=== PATIENT | female | born 1940 | race Caucasian/White ===

== ENCOUNTER → 2023-11-30 09:35 | Outpatient (REF) | payer OTHER, SELFPAY ==
[2023-11-30 10:24] LABS: % Basophils 0.9 % (0-2); % Eosinophils 7.1 % (0-6); % Immature Granulocytes 0.2 % (0-0.5); % Lymphocytes 33.3 % (20.5-51.1); % Monocytes 12.2 % (1.7-9.3); % Neutrophils 46.3 % (42.2-75.2); Absolute Eosinophils 0.3 10^3/uL (0-0.7); Absolute Lymphocytes 1.5 10^3/uL (1.2-3.4); Absolute Monocytes 0.5 10^3/uL (0.1-0.6); Hematocrit 47.1 % (37.0-47.0); Hemoglobin 15.7 g/dL (12.0-16.0); Mean Corp Hgb Conc. 33.3 g/dL (33.0-37.0); Mean Corpuscular Hgb 29.6 pg (27.0-31.0); Mean Corpuscular Volume 88.9 fL (81.0-99.0); Mean Platelet Volume 10.7 fL (7.4-10.4); Nucleated Red Blood Cells % 0 %; Platelet Count 205 10^3/uL (130-400); Red Cell Dist. Width 13.3 % (11.5-14.5); Urine Albumin Negative (Neg - Trace); Urine Bilirubin Negative (Negative); Urine Character Clear (Clear); Urine Color Yellow; Urine Glucose Negative (Negative); Urine Ketone Negative (Negative); Urine Leukocyte Trace (Negative); Urine Nitrite Negative (Negative); Urine Occult Blood Trace (Negative); Urine Urobilinogen Negative (Neg - 1+); White Blood Cell Count 4.4 10^3/uL (4.8-10.8)
[2023-11-30 10:55] LABS: Urine Mucus Many
[2023-11-30 10:56] LABS: ALT (SGPT) < 10 U/L (0-35); AST (SGOT) 24 U/L (14-36); Albumin 3.8 g/dl (3.5-5.0); Alkaline Phosphatase 68 U/L (38-126); Blood Urea Nitrogen 9 mg/dl (7-17); Calcium 9.1 mg/dl (8.4-10.2); Carbon Dioxide 25 mmol/L (22-30); Chloride 109 mmol/L (98-107); Glucose 96 mg/dl (70-99); HDL Cholesterol 61 mg/dl; LDL Cholesterol, Calculated 72 mg/dl; Potassium 4.7 mmol/L (3.5-5.1); Sodium 137 mmol/L (135-145); Total Bilirubin 0.9 mg/dl (0.2-1.3); Total Cholesterol 154 mg/dl (50-199); Total Protein 6.7 g/dl (6.3-8.2); Triglyceride 108 mg/dl (10-149); Urine Bacteria Few (Negative); Urine Red Blood Cell 0-2 /HPF (0-2); Urine White Cell 0-2 /HPF (0-5); Very Low Density Lipoprotein 21 mg/dl (0-30); eGFR > 60.00
[2023-11-30 11:21] LABS: TSH Reflex To Free T4 2.11 uIU/ml (0.47-4.68)
== END ==
LOC: REG 09:35
PROVIDERS: ATTENDING PHYSICIAN Physician Assistant
DX: I10 Essential (primary) hypertension (principal); Z83.438 Family history of other disorder of lipoprotein metabolism and other lipidemia; Z13.1 Encounter for screening for diabetes mellitus; Z13.29 Encounter for screening for other suspected endocrine disorder
CPT/HCPCS: 36415; 80053; 80061; 81003; 81015; 84443; 85025

== ENCOUNTER → 2024-02-26 13:48 | Outpatient (REF) | payer OTHER, SELFPAY | LOC: RCS 13:48 | PROVIDERS: ATTENDING PHYSICIAN Physician Assistant | DX: I10 Essential (primary) hypertension (principal); E78.5 Hyperlipidemia, unspecified | CPT/HCPCS: 93005 ==

== ENCOUNTER → 2024-03-19 14:29 | Outpatient (REF) | payer OTHER, SELFPAY | LOC: WDC 14:29 | PROVIDERS: ATTENDING PHYSICIAN Physician Assistant | DX: Z12.31 Encounter for screening mammogram for malignant neoplasm of breast (principal) | CPT/HCPCS: 77063; 77067 ==

== ENCOUNTER 2024-04-15 14:41 | Inpatient (IN) | payer OTHER, SELFPAY ==
[2024-04-15] VITALS (21 sets, daily range): BP systolic 138–252; BP diastolic 55–127; BMI 23.7
--- NOTE | 2024-04-15 10:47 | ED.GENMED ---
History of Present Illness
<Michelle Rebollar PA-C - Last Filed: 04/15/24 13:47>
General
Chief Complaint: Blood Pressure Problem
Source: patient
Exam Limitations: none
Time Seen by Provider: 04/15/24 10:45
Nursing documentation reviewed up to this point in time: agreed with
Travel History
Have you had any contact with someone who has COVID-19?: No
Do you have any symptoms of coronavirus? Fever > 100 degrees, chills, cough, shortness of breath, sore throat, loss of taste or smell, muscle aches, or headache?: No
History of Present Illness
History of Present Illness:
This is a 83 y/o female with a PMH of HTN, HLP presenting to the emergency department today with concerns of high blood pressure. She states that she is healthy and feels well. States that she is establishing care with a new primary Dr. Wilson and
Dulce BARBER at [facility]. Patient states that they ordered routine test to establish a baseline which include an echocardiogram. She went for this test today for study was completed but they noted that she had a high blood
pressure and they sent her to the emergency department for further evaluation. Patient has been on losartan 100 mg once daily metoprolol 50 milligram twice daily for many years. Patient states that she has not seen her primary in a few years but
throughout that time has been taking her medications daily but is unsure what her baseline blood pressures. Patient denies any chest pain, shortness of breath, abdominal pain, headache, back pain, decreased urinary output. Patient is never seen a
automatic glove turner and former. Patient requesting to go home. Patient also complains of wax in her ears.
Review of Systems
<Michelle Rebollar PA-C - Last Filed: 04/15/24 13:47>
Review of Systems
All Other Systems: ROS reviewed and negative except as documented in HPI and ROS
Phy Exam
<Michelle Rebollar PA-C - Last Filed: 04/15/24 13:47>
Physical Exam
Physical Exam:
General: Patient is well appearing and in no acute distress; non-toxic
Skin: Warm and dry, no rashes or lesions
Head: Normocephalic, atraumatic
Ears: No cerumen impaction in bilateral external canals
Eyes: Sclera non-icteric. EOMs intact. PERRLA.
Cardiac: Regular rate and rhythm, no murmur
Peripheral Vascular: No lower extremity swelling
Pulm: Normal respiratory effort, no wheezes, rales, rhonchi
Abdomen: No abdominal tenderness to palpation
Neuro: CN II-XII intact, no focal neurologic deficits.
Psychiatric: Appropriate mood and affect.
Course
<RADHAMES Boyer Last Filed: 04/15/24 13:47>
Orders/Labs/Results
Orders:
Orders
04/15/24
US Renal With Bladder Urgent
04/15/24 10:52
Electrocardiogram (*1) Urgent
Reason for Study: Hypertension, Benign
EKG- Treatment ONCE
04/15/24 11:12
Complete Blood Count/With Diff Urgent
Comprehensive Metabolic Panel Urgent
04/15/24 11:37
Losartan [Cozaar] 100 mg PO NOW STA
Metoprolol [Lopressor] 50 mg PO NOW STA
04/15/24 12:[address] Non Medication Order As Directed
Physician Order: Obtain BP on both arms and document
Above order entered?: Yes
04/15/24 13:00
Nicardipine 40 mg/200 ml [Cardene] 40 mg in 200 ml IV PER PROTOCOL
Initial dose in mg/hr, then titrate:: 2.5
Titrate to keep:: BP < 180/105 mmHg
Titrate by mg/hr:: 2.5 mg/hr
Frequency of titrations (minutes):: 5-15 minutes
Maximum dose in mg/hr:: 15
Begin to taper infusion when:: Remained at goal for 2hrs
Taper by mg/hr:: 2.5 mg/hr
Frequency of taper (minutes) if patient maintains goal:: every 15-30 minutes
Taper to off?: Yes
If infusion off & no longer maintaining goal:: Contact Provider
04/15/24 13:10
Add On- LAB Urgent
Tests Added?: plasma metanephrines
04/15/24 13:14
US Renal Artery Routine
Comment:
Reason For Exam: HTN urgency
04/15/24 14:00
Chlorthalidone [Hygroton] 25 mg PO DAILY
04/15/24 20:00
Carvedilol [Coreg] 12.5 mg PO BID
04/16/24 08:00
Hydrochlorothiazide [Oretic] 25 mg PO DAILY
Abnormal Lab Results
04/15/24
11:12
RBC 5.46 H 10^6/uL
(4.20-5.40)
Hgb 16.1 H g/dL
(12.0-16.0)
MPV 10.8 H fL
(7.4-10.4)
Monocytes % 9.9 H %
(1.7-9.3)
Glucose 108 H mg/dl
(70-99)
04/15/24 11:12
04/15/24 11:12
Vital Signs
Initial and Last Documented VS:
Initial Vital Signs
Pulse Resp BP Pulse Ox
62 20 248/120 96
04/15/24 10:41 04/15/24 10:41 04/15/24 10:41 04/15/24 10:41
Last Documented Vital Signs
Pulse Resp BP Pulse Ox
54 8 228/75 96
04/15/24 12:45 04/15/24 12:45 04/15/24 13:11 04/15/24 12:45
<Дмитрий Jimenez MD - Last Filed: 04/15/24 12:11>
Orders/Labs/Results
Orders:
Orders
04/15/24
US Renal With Bladder Urgent
04/15/24 10:52
Electrocardiogram (*1) Urgent
Reason for Study: Hypertension, Benign
EKG- Treatment ONCE
04/15/24 11:12
Complete Blood Count/With Diff Urgent
Comprehensive Metabolic Panel Urgent
04/15/24 11:37
Losartan [Cozaar] 100 mg PO NOW STA
Metoprolol [Lopressor] 50 mg PO NOW STA
04/15/24 12:[address] Non Medication Order As Directed
Physician Order: Obtain BP on both arms and document
Above order entered?: Yes
04/15/24 13:00
Nicardipine 40 mg/200 ml [Cardene] 40 mg in 200 ml IV PER PROTOCOL
Initial dose in mg/hr, then titrate:: 2.5
Titrate to keep:: BP < 180/105 mmHg
Titrate by mg/hr:: 2.5 mg/hr
Frequency of titrations (minutes):: 5-15 minutes
Maximum dose in mg/hr:: 15
Begin to taper infusion when:: Remained at goal for 2hrs
Taper by mg/hr:: 2.5 mg/hr
Frequency of taper (minutes) if patient maintains goal:: every 15-30 minutes
Taper to off?: Yes
If infusion off & no longer maintaining goal:: Contact Provider
04/15/24 13:10
Add On- LAB Urgent
Tests Added?: plasma metanephrines
04/15/24 13:14
US Renal Artery Routine
Comment:
Reason For Exam: HTN urgency
04/15/24 14:00
Chlorthalidone [Hygroton] 25 mg PO DAILY
04/15/24 20:00
Carvedilol [Coreg] 12.5 mg PO BID
04/16/24 08:00
Hydrochlorothiazide [Oretic] 25 mg PO DAILY
Abnormal Lab Results
04/15/24
11:12
RBC 5.46 H 10^6/uL
(4.20-5.40)
Hgb 16.1 H g/dL
(12.0-16.0)
MPV 10.8 H fL
(7.4-10.4)
Monocytes % 9.9 H %
(1.7-9.3)
Glucose 108 H mg/dl
(70-99)
04/15/24 11:12
04/15/24 11:12
Vital Signs
Initial and Last Documented VS:
Initial Vital Signs
Pulse Resp BP Pulse Ox
62 20 248/120 96
04/15/24 10:41 04/15/24 10:41 04/15/24 10:41 04/15/24 10:41
Last Documented Vital Signs
Pulse Resp BP Pulse Ox
54 8 228/75 96
04/15/24 12:45 04/15/24 12:45 04/15/24 13:11 04/15/24 12:45
Patellt;Michelle Rebollar PA-C - Last Filed: 04/15/24 13:47>
MDM/Problems Addressed
Differential Diagnosis Includes:
Differentials include essential hypertension, medication noncompliance, whitecoat syndrome, ACS, hyperthyroidism
MDM/Problems Addressed:
Hypertension:
This is a 83-year-old female with a past medical history of hypertension hyperlipidemia presenting today for concerns of asymptomatic hypertension. She was sent from the echocardiogram suite because that they noticed her blood pressure was 240/120.
Patient has no chest pain, no headache, no back pain no abdominal pain, completely asymptomatic. Patient take losartan and metoprolol daily. Patient did not take these this morning because she likes to take them with food and she was going at her
echocardiogram did not have a chance to eat this morning. This patient very well-appearing on exam, no murmurs heard on exam, no lower extremity swelling, equal breath sounds. I spoke to ELISABETH from Dr. Samayoa's office who is requesting patient's
blood pressure be further managed by cardiology. We spoke to automatic glove turner and former on-call for further recommendations for an additional agent, they saw patient and considering her BP has been persistently elevated despite treatment, they did recommend
admission so she can have further testing done for secondary causes. We did give patient her oral meds here in the ER which did not seem to bring her pressure down significantly. Patient referred for admission.
Chronic conditions affecting care:
hypertension, hyperlipidemia
Acute Exacerbation and/or Progression of Chronic Illness:
hypertension, hyperlipidemia
<Michelle Rebollar PA-C - Last Filed: 04/15/24 13:47>
*Pulse Oximetry
Patient hypoxic: no
*EKG
Interpreted by ED Provider?: Yes
EKG Intrepretation Date: 04/15/24
Interpretation: normal
Comparison EKG: no changes
Heart Rate: 63
Rate: normal
Rhythm: sinus
[place]: normal axis
Interval: normal interval, normal QT interval and normal [place] interval
QRS Pattern: normal QRS
Ischemia: no ischemia
*Water Gas Operator Interpretation
Rate: bradycardiac
Interpretation: abnormal
Heart Rate: 53
Rhythm: sinus
*Critical Care Note
Total Time (30-74mins, 75-104mins- exclusive of procedures): Not Applicable
Data Reviewed
Review of Other/Old Records Reveals: Records (Reviewed ER physician documentation from 08/05/21) and Discharge Summary (No recent discharge summaries to review)
Source: patient and records
Prescriptions/Medications Considered But Not Given:
Considered IV labetalol however patient is heart rate is in the 50s to 60s and already takes metoprolol daily
<Michelle Rebollar PA-C - Last Filed: 04/15/24 13:47>
Patient Management
Escalation/DeEscalation of care consider admission/obs:
admission indicated
ED Attending Note
<Michelle Rebollar PA-C - Last Filed: 04/15/24 13:47>
-
Portions of this chart may have been created with voice recognition software.� Occasional wrong word or��sound alike� substitutions may have occurred due to the inherent limitations of voice recognition software.
<Дмитрий Jimenez MD - Last Filed: 04/15/24 12:11>
ED Attending Note
Patient seen and examined by attending physician: Yes
I performed the substantive portion of visit, reviewed & personally made and approve the management plan that is documented in note by myself or ELISABETH.: Yes
ED Attending Note:
Patient sent from echocardiogram for asymptomatic hypertension. Has been an ongoing issue. Patient states compliant with medication. Currently on losartan 100 mg a day and metoprolol 100 mg daily. No chest pain shortness of breath headache
visual issues or neurologic issues.
Patient is in no distress. Neck is supple. Heart regular rate and rhythm no murmur. Lungs are clear and equal. Abdomen nontender. She has no peripheral edema.
EKG is stable. Contacted echo department to try to get echo read. Discussed with primary care. We will contact cardiology further input and follow-up for hypertension. She was given her morning meds.
Discharge Plan
Departure
Patient Disposition: Admit
Date of Disposition: 04/15/24
Time of Disposition: 13:03
Admit to: Telemetry
Presentation/result/management discussed w/ accepting MD/DO: Hospitalist
Condition: Fair
Discharge Problem:
Hypertension
Prescriptions:
No Action
metoprolol succinate 50 mg tablet extended release 24 hr
100 mg PO DAILY
losartan 100 mg tablet
100 mg PO DAILY
pitavastatin calcium 4 mg tablet
4 mg PO DAILY
Referrals:
Rayshawn Wilson MD [Family Provider] -
Interventions
Interventions:
*Risk Screen - Suicide Last Done: 04/15/24 10:41
*General Assessment Last Done: 04/15/24 10:41
*Neglect/Abuse Screening Last Done: 04/15/24 10:41
ED- Cardiac Assessment Last Done: 04/15/24 11:33
ED- Neurological Assessment Last Done: 04/15/24 11:33
ED- Pulmonary Assessment Last Done: 04/15/24 11:33
Discharge Date and Time
Print Language: SLOVENIAN
[2024-04-15 11:34] LABS: % Eosinophils 3.9 % (0-6); % Immature Granulocytes 0.2 % (0-0.5); % Lymphocytes 25.6 % (20.5-51.1); % Monocytes 9.9 % (1.7-9.3); % Neutrophils 59.4 % (42.2-75.2); Absolute Basophils 0.1 10^3/uL (0-0.2); Absolute Eosinophils 0.2 10^3/uL (0-0.7); Absolute Lymphocytes 1.3 10^3/uL (1.2-3.4); Absolute Monocytes 0.5 10^3/uL (0.1-0.6); Absolute Neutrophils 3.1 10^3/uL (1.4-6.5); Hematocrit 46.7 % (37.0-47.0); Hemoglobin 16.1 g/dL (12.0-16.0); Mean Corp Hgb Conc. 34.5 g/dL (33.0-37.0); Mean Corpuscular Hgb 29.5 pg (27.0-31.0); Mean Corpuscular Volume 85.5 fL (81.0-99.0); Mean Platelet Volume 10.8 fL (7.4-10.4); Nucleated Red Blood Cells % 0 %; Platelet Count 206 10^3/uL (130-400); Red Blood Cell Count 5.46 10^6/uL (4.20-5.40); Red Cell Dist. Width 13.2 % (11.5-14.5); White Blood Cell Count 5.2 10^3/uL (4.8-10.8)
[2024-04-15 11:43] LABS: ALT (SGPT) < 10 U/L (0-35); AST (SGOT) 26 U/L (14-36); Albumin 4.1 g/dl (3.5-5.0); Alkaline Phosphatase 67 U/L (38-126); Blood Urea Nitrogen 10 mg/dl (7-17); Calcium 9.9 mg/dl (8.4-10.2); Carbon Dioxide 27 mmol/L (22-30); Chloride 107 mmol/L (98-107); Glucose 108 mg/dl (70-99); Potassium 4.4 mmol/L (3.5-5.1); Sodium 140 mmol/L (135-145); Total Bilirubin 1.1 mg/dl (0.2-1.3); Total Protein 7.2 g/dl (6.3-8.2); eGFR > 60.00
[2024-04-15] MEDS: LOPRESSOR 50 MG PO (11:49)
[2024-04-15] MEDS: COZAAR 100 MG PO (11:49)
--- NOTE | 2024-04-15 12:24 | CON.CAR ---
Addendum entered and electronically signed by Jessica Marrufo MD 04/15/24 15:09:
I saw and examined the patient.
The CORDUROY BRUSHER OPERATOR's note was reviewed and I agree with the note.
Comment: 83-year-old female with recent diagnosis of hypertension and dyslipidemia after no medical care for 3-4years. She was sent to the ED for severe HTN while in the echo lab. She has no symptoms. She didn't take her meds prior to arrival.
However bp persists int he 2330/120's. On exam rrr no m/r/g lungs are CTA. She is A&O x3. will need agreesive care for the HTN urgency/emergency. We will make the below med changes. Will start a secondary work up. Will follow.
Original Note:
Consultation
Consultation Request
Date/Time Consultation Requested: 04/15/2024 12:15
Date/Time Consultation Performed: 04/15/2024 12:30
Requesting Provider: Michelle Rebollar PA-C
Performing Provider: LUZMARIA Mohr for Dr. Marrufo
Reason for Consultation: HTN Urgency
Medical History
-
Chief Complaint: Elevated BP
History of Present Illness:
Janee Tellez is an 83-year-old female with hypertension and dyslipidemia who presented with elevated blood pressure. She has been having challenges with her blood pressure. When she last saw her PCP her blood pressure recorded for her office
visit was 210/90 mmHg. This correlated with her Omron machine. Home blood pressures were over 200 mmHg systolic at home. She is maintained on metoprolol succinate 100 mg daily and losartan 100 mg daily. She reports medication adherence. She did
not take her medication this morning. She was waiting until she ate. She presented for an echocardiogram and was referred to the emergency department after it was completed due to her abnormal blood pressure. Her blood pressures correlate on both
of her arms. She is not having any chest pain, dizziness, nor visual changes. She was given losartan 100 mg orally in the emergency department and has had no change in her blood pressure.
She believes her elevated blood pressure is all in the setting of stress. She is mourning the loss of her 12-year-old grandson, Luis, who lost his stevens with leukemia last year.
Past Medical History
Past Medical History: HTN and Hypercholesterolemia
Social History
Tobacco: Non-Smoker
Drug: None
Personal:
Living: With Family
Employment: Retired
Family History
Family History: Reviewed & Not Pertinent
Allergies / Home Medications
Allergy/AdvReac Type Severity Reaction Status Date / Time
No Known Allergies Allergy Verified 04/15/24 10:43
�Medication �Instructions �Recorded �Confirmed �Type
losartan 100 mg tablet 100 mg PO DAILY 04/15/24 04/15/24 History
metoprolol succinate 50 mg 100 mg PO DAILY 04/15/24 04/15/24 History
tablet,extended release 24 hr
pitavastatin calcium 4 mg tablet 4 mg PO DAILY 04/15/24 04/15/24 History
Review of Systems
-
History Source: Patient
All other systems: Negative unless noted
Respiratory: No Symptoms
Cardiac: No Symptoms
Abdomen/GI: No Symptoms
: No Symptoms
Physical Exam
Vital Signs
Pulse Resp BP Pulse Ox
54 17 250/93 99
04/15/24 11:49 04/15/24 11:30 04/15/24 11:49 04/15/24 11:30
Lab Results
04/15/24 11:12
04/15/24 11:12
Physical Exam
General: Well Developed, Well Nourished, No Apparent Distress and Comfortable
HEENT: Normocephalic, Anicteric and Moist Mucous Membranes
Respiratory: Non Labored Respirations
Cardiac: S1/S2 and Regular Rhythm; Negative Peripheral Edema
Breast: Deferred by me
GI: Soft, Non Tender, Non Distended and Normal Bowel Sounds
Rectal: Deferred by Provider
Genito-urinary: No Costovertebral Tender
Musculoskeletal: No Clubbing, No Cyanosis and No Edema
Skin: Warm and Dry
Neuro: AO x 3
Hematologic/Lymphatic: No Lymphadenopathy
Psych: Calm
Impression / Plan
-
Hypertensive urgency
-EKG without acute ischemia
-Start Cardene for SBP goal < 180mmHg
-Serum metanephrines
-Renal artery US
-Echocardiogram today with stage II DD, mild cLVH
-Continue Losartan 100mg
-Chlorthalidone 25mg daily, start now
-Stop metoprolol succinate 100mg and transition to carvedilol 12.5mg BID starting this evening
Dyslipidemia
-Lipid panel 11/30/2023: TC 154, HDL 61, LDL 72, TG 108 (on pravastatin 4 mg)
Data Reviewed
-
EKG: Report Reviewed by me (Sinus rhythm, nonspecific ST abnormality, rate 63)
Medical Tests (Nuc Med, Echo etc): Report Reviewed by me (Echocardiogram as above)
Labs: Labs Reviewed by me
Old Records: Reviewed
--- NOTE | 2024-04-15 13:17 | HPS.HSE ---
Addendum entered and electronically signed by LUZMARIA Nick 04/15/24 15:55:
Patient was on Cardene drip 2.5 mg an hour dropped from 237/83 to 138/59
-We will stop Cardene drip
-Downgrade to telemetry
-Give chlorthalidone
-Continue to monitor
Original Note:
Family Physician
-
Family Physician: Rayshawn Wilson
Chief Complaint
-
Elevated blood pressure in office no current symptoms
History of Present Illness
83-year-old female who was sent by cardiology office where she was due for an echo today. She was noted to be hypertensive and was sent to the ER for further evaluation. In the ER her blood pressure was 248/120. She was given her dose of Cozaar
and Lopressor. She currently takes losartan 100 mg daily, metoprolol 50 mg twice daily. She has not seen a primary care in a few years and just reestablish care with Dr. Wilson. She denies headache, blurred vision, chest pain, palpitations,
shortness breath, cough, abdominal pain, nausea, vomiting, diarrhea, urinary symptoms. She is past medical history of hypertension, HLD.
Medical History
Past Medical History
Past Medical History: Reports Other
Additional Past Medical History:
HTN�benign
HLD
Past Surgical History: Reports
Social History
Tobacco: Non-smoker
Alcohol: None
Drug: None
Personal:
Living: With Family
Employment: Retired
Family History
Family History: Other (Grandson of leukemia age 12)
Allergies / Home Medications
Allergies reflects when Allergies were last updated in [facility].
Home Medications with original date entered in [facility]
Allergy/Medication List:
Allergies
Allergy/AdvReac Type Severity Reaction Status Date / Time
No Known Allergies Allergy Verified 04/15/24 10:43
Home Medications
losartan 100 mg tablet 100 mg PO DAILY 04/15/24
metoprolol succinate 50 mg tablet,extended release 24 hr 100 mg PO DAILY 04/15/24
pitavastatin calcium 4 mg tablet 4 mg PO DAILY 04/15/24
Review of Systems
-
History Source: Patient and Family ( Ed and son Jorge at bedside)
A 12 point ROS was completed and negative except as noted: Yes
Constitutional: Denies Fever, Fatigue or Chills
EENT: Denies Sore Throat or Runny Nose
Respiratory: Denies Cough or Trouble Breathing
Cardiac: Denies Chest Pain, Diaphoresis, Palpitations or Syncope
Abdomen/GI: Denies Abdominal Pain, Nausea, Vomiting, Diarrhea, Constipated, Bloody Stools or Black Stools
: Denies Dysuria, Frequency, Flank Pain, Incontinence, Difficulty Voiding or Urgency
Musculoskeletal: Denies Joint Pain or Edema
Skin: Denies Itching or Rash
Neurological: Denies Dizzy, Headache or Weakness
Endocrine: Reports No Symptoms
Hematologic/Lymphatic: Reports No Symptoms
Psych: Reports Calm
Physical Exam
Vital Signs
Vital Signs
Pulse Resp BP Pulse Ox
54 8 228/75 96
04/15/24 12:45 04/15/24 12:45 04/15/24 13:11 04/15/24 12:45
Physical Exam
General: Well Developed, Well Nourished, No Apparent Distress, Comfortable and Conversant; No Pain, Fever or Chills
HEENT: NormoCephalic, Anicteric, Moist mucous membranes, PERRLA, [place] Conjunctivae and No Ptosis
Respiratory: Clear; No Wheezes, Rales or Rhonchi
Cardiac: S1/S2 and Regular Rhythm; No Murmur, Rub, Gallop or Peripheral Edema
Breast: Deferred by me
GI: Soft, Non Tender, Non Distended, Normal Bowel Sounds and No Hepatosplenomegaly
Rectal: Deferred by Provider
Genito-urinary: Deferred by me
Musculoskeletal: No Clubbing, No Cyanosis and No Edema
Skin: Warm and Dry; No Rash or Jaundice
Neuro: AO x 3, No Motor Deficits, Nonfocal/grossly intact, Cranial Nerves Intact and No Sensory Deficits; No Slurred Speech, Facial Droop or Tremors
Psych: Calm
Laboratory Results
-
04/15/24 11:12
04/15/24 11:12
Laboratory Results
Total Bilirubin 1.1 mg/dl (0.2-1.3) 04/15/24 11:12
AST 26 U/L (14-36) 04/15/24 11:12
ALT < 10 U/L (0-35) 04/15/24 11:12
Alkaline Phosphatase 67 U/L (38-126) 04/15/24 11:12
Impression/Plan
-
Impression/plan:
Admit to ICU
#Hypertensive emergency
Asymptomatic no headache, chest pain, shortness of breath
248/120> 233/127
Patient was given Cozaar milligrams and Lopressor 50 mg in ER
-IV Cardene drip
-Start chlorthalidone 25 mg daily
-Change metoprolol> Coreg
-CBC cardiology consult
-Check renal artery ultrasound
2D echo 04/15/2024: EF 50-55%, mild LVH, no wall abnormalities, stage II diastolic dysfunction
#HLD
Continue Pitavastatin 4 mg daily
DVT prophylaxis
Subcu Lovenox
Full code
[2024-04-15] MEDS: CARDENE 200 IV (14:45)
--- NOTE | 2024-04-15 15:47 | W.PN.UPDATE ---
Update Note
Progress Note Update
This serves as an addendum to the H&P dictated by Anel Fuller on 04/15/2024.
I saw and examined the patient.
The AGILITY INSTRUCTOR or PA's note was reviewed and I agree with the note.
Comment:
Patient 83 years old female history of hypertension hyperlipidemia came into the hospital with hypertension. Patient has been managed outpatient with her blood pressure but she has been asymptomatic but due to multiple changes she was sent over for
further workup to the hospital but while she was getting her echocardiogram her blood pressure was noticed to be very elevated so she was sent to the ER. Patient denies any chest pain shortness of breath dizziness visual changes headache or
lightheadedness. Patient has been under significant amount of stress from her grandson's . She was given oral blood pressure medications and subsequently started by Cardene drmaggie and cardiology consulted. Hospitalist consulted for further
evaluation and admission.
Physical exam:
General: Well Developed, Well Nourished and No Apparent Distress
HEENT: Normocephalic, Atraumatic and Moist Mucous Membranes
Respiratory: Clear to Auscultation; Negative Wheezes, Rales or Rhonchi
Cardiac: Regular Rhythm and S1/S2
GI: Soft, Nontender and Nondistended
Musculoskeletal: No Clubbing, No Cyanosis and No Edema
Neuro: Awake, Alert and Oriented
Psych: Calm
A/P:
Hypertensive urgency--> should be able to switch to oral antihypertensives, needs secondary causes of hypertension workup, cardiology consulted. Will give further recommendations based on her clinical course.
[2024-04-15] MEDS: Hygroton 25 MG PO (15:51)
[2024-04-15] MEDS: LOVENOX 40 MG SC (17:53)
--- NOTE | 2024-04-15 19:05 | PTCARENOTE ---
Arrived to unit and ambulated to room from ED stretcher. No complaints at this time. Oriented to room. Call ortega within reach.
[2024-04-15] MEDS: COREG 12.5 MG PO (20:16)
[2024-04-16] VITALS (12 sets, daily range): BP systolic 132–220; BP diastolic 62–96; PULSE 62–63; O2SAT 98; BMI 23.8
--- NOTE | 2024-04-16 03:39 | DOWNTIME ---
There was a [employer] Client Family Helper Downtime on 04/16/2024 from 0100 to 04/16/2024 at 0337. Downtime documentation of patient's care, including medication administrations, has been reconciled in the electronic record per guidelines. Refer to the
patient's paper chart under the miscellaneous tab to see printed paper medication records and downtime forms.
[2024-04-16 07:21] LABS: % Basophils 0.7 % (0-2); % Eosinophils 3.5 % (0-6); % Immature Granulocytes 0.2 % (0-0.5); % Lymphocytes 32.2 % (20.5-51.1); % Monocytes 12.9 % (1.7-9.3); % Neutrophils 50.5 % (42.2-75.2); Absolute Eosinophils 0.2 10^3/uL (0-0.7); Absolute Lymphocytes 1.5 10^3/uL (1.2-3.4); Absolute Monocytes 0.6 10^3/uL (0.1-0.6); Absolute Neutrophils 2.3 10^3/uL (1.4-6.5); Hematocrit 42.8 % (37.0-47.0); Hemoglobin 14.2 g/dL (12.0-16.0); Mean Corp Hgb Conc. 33.2 g/dL (33.0-37.0); Mean Corpuscular Hgb 28.9 pg (27.0-31.0); Mean Platelet Volume 10.6 fL (7.4-10.4); Nucleated Red Blood Cells % 0 %; Platelet Count 174 10^3/uL (130-400); Red Blood Cell Count 4.92 10^6/uL (4.20-5.40); Red Cell Dist. Width 13.4 % (11.5-14.5); White Blood Cell Count 4.6 10^3/uL (4.8-10.8)
[2024-04-16 08:09] LABS: ALT (SGPT) < 10 U/L (0-35); AST (SGOT) 24 U/L (14-36); Albumin 3.6 g/dl (3.5-5.0); Alkaline Phosphatase 56 U/L (38-126); Blood Urea Nitrogen 12 mg/dl (7-17); Calcium 9.5 mg/dl (8.4-10.2); Carbon Dioxide 23 mmol/L (22-30); Chloride 109 mmol/L (98-107); Estimated Creatinine Clearance 45 ml/min; Glucose 106 mg/dl (70-99); HDL Cholesterol 57 mg/dl; LDL Cholesterol, Calculated 67 mg/dl; Potassium 3.8 mmol/L (3.5-5.1); Sodium 139 mmol/L (135-145); Total Bilirubin 0.9 mg/dl (0.2-1.3); Total Cholesterol 154 mg/dl (50-199); Total Protein 6.2 g/dl (6.3-8.2); Triglyceride 152 mg/dl (10-149); Very Low Density Lipoprotein 30 mg/dl (0-30); eGFR > 60.00
--- NOTE | 2024-04-16 08:34 | W.PN.HOSP.TC ---
Today's Communication/Plan
-
Continue current antihypertensives. Cardiology follow-up
Assessment / Plan
Assessment / Plan
Physical exam:
General: Well Developed, Well Nourished and No Apparent Distress
HEENT: Normocephalic, Atraumatic and Moist Mucous Membranes
Respiratory: Clear to Auscultation; Negative Wheezes, Rales or Rhonchi
Cardiac: Regular Rhythm and S1/S2
GI: Soft, Non tender and Nondistended
Musculoskeletal: No Clubbing, No Cyanosis and No Edema
Neuro: Awake, Alert and Oriented
Psych: Calm
A/P:
#Hypertensive Urgency
Patient briefly on Cardene drip yesterday but discontinued.
Currently on carvedilol 12.5 mg twice a day, losartan 100 mg daily, and chlorthalidone 25 mg daily.
Renal artery ultrasound no significant stenosis
Echocardiogram no significant abnormalities
Appreciated cardiology consult and follow-up further recommendations today
Discussed with family at bedside
#HLD
Continue Pitavastatin 4 mg daily
DVT prophylaxis
Subcu Lovenox
Full code
Anticipated Discharge: 24 - 48 hours
Subjective/Interval History
-
Date of Service: April 16, 2024
Patient denies any chest pain or shortness of breath. No headaches or lightheadedness.
Objective Data
-
Labs:
Laboratory Results
04/16/24
06:57
WBC 4.6 L
Hgb 14.2
Hct 42.8
Plt Count 174
Sodium 139
Potassium 3.8
Chloride 109 H
Carbon Dioxide 23
BUN 12
Creatinine 0.9
Glucose 106 H
Calcium 9.5
Total Bilirubin 0.9
AST 24
ALT < 10
Alkaline Phosphatase 56
Vital Signs:
Vital Signs
Temp Pulse Resp BP Pulse Ox
97.9 F 64 16 176/80 99
04/16/24 07:40 04/16/24 07:40 04/16/24 07:40 04/16/24 07:40 04/16/24 07:40
I&O
04/15/24 04/16/24 04/17/24
06:59 06:59 06:59
Intake Total 720 / 720
Balance 720 / 720
[2024-04-16] MEDS: COZAAR 100 MG PO (08:52)
[2024-04-16] MEDS: Hygroton 25 MG PO (08:52)
[2024-04-16] MEDS: LIPITOR 20 MG PO (08:52)
[2024-04-16] MEDS: COREG 12.5 MG PO ×2 (08:53→20:00)
--- NOTE | 2024-04-16 09:05 | PTOTSP ---
Patient independent with all functional mobility and ambulation. No skilled PT needs, will sign off.
--- NOTE | 2024-04-16 11:41 | W.PN.CD ---
Addendum entered and electronically signed by Willie Ibanez MD 04/16/24 13:35:
I saw and examined the patient.
The FULL STACK DEVELOPER's note was reviewed and I agree with the note.
Patent feels well and without symptoms. 20lb differncein arm BP. right greater than left
- Coreg dose limited by HR
- add amlodipine for additonal BP control
- check US of upper extremities
- use right arm blood pressures.
Original Note:
Today's Communication / Plan
-
-continue BB, ARB, Chlorthalidone- will discuss further medicine adjustments (add CCB versus transition to more potent ARB)
-secondary w/u labs pending
Impression / Plan
-
83-year-old female with recent diagnosis of hypertension and dyslipidemia after no medical care for 3-4years. She was sent to the ED for severe HTN while in the echo lab. She has no symptoms.
Hypertensive urgency:
-improved, but still elevated. No symptoms.
-Echocardiogram this admit with stage II DD, mild cLVH
-Metoprolol transitioned to Coreg- no more HR room for increase. Chlorthalidone initiated. On losartan. Continue these medicines. Will continue to adjust as appropriate. Can add CCB, versus adjust losartan to valsartan.
-secondary work-up initiated and labs pending, renal artery u/s: no sonographic evidence of significant renal arterial stenosis on either side.
Dyslipidemia
-Lipid panel 11/30/2023: TC 154, HDL 61, LDL 72, TG 108
-continue statin
Physical Exam
Vital Signs/Labs
Vital Signs
Temp Pulse Resp BP Pulse Ox
97.9 F 64 16 199/90 99
04/16/24 07:40 04/16/24 08:52 04/16/24 07:40 04/16/24 08:52 04/16/24 07:40
04/15/24 04/16/24 04/17/24
06:59 06:59 06:59
Actual Weight 68.719 kg
04/16/24 06:57
04/16/24 06:57
Triglycerides 152 mg/dl (10-149) H 04/16/24 06:57
LDL Cholesterol, Calc 67 mg/dl 04/16/24 06:57
VLDL Cholesterol, Calc 30 mg/dl (0-30) 04/16/24 06:57
HDL Cholesterol 57 mg/dl 04/16/24 06:57
Physical Exam
Constitutional: No acute distress
EENT: Anicteric
Cardiovascular: Rhythm & rate is regular
Respiratory: Respiratory effort normal and Lungs clear to auscul.
Neuro/Psych: AO x 3
Data Reviewed
-
Date of Service: April 16, 2024
EKG: Other (SB/ SR)
Labs: Labs Reviewed by me
--- NOTE | 2024-04-16 11:54 | CM ---
Patient seen bedside with spouse, initial assessment completed. Patient resides with in a multiple story home, one step to enter home, flight of stairs to bedroom. Patient denies DME, VN, or SNF, reports she is very active and plays football
with her grandchildren. Patient PCP Rayshawn Wilson, [facility]. Patient confirms prescription coverage. Per PT note, no skilled need. CM will continue to follow for all discharge planning needs.
Plan; home no needs when stable.
[2024-04-16] MEDS: NORVASC 5 MG PO (14:44)
[2024-04-16] MEDS: LOVENOX 40 MG SC (18:21)
[2024-04-16] MEDS: APRESOLINE 10 MG IV (18:54)
[2024-04-17 03:22] VITALS: BP 130/70
[2024-04-17 05:13] VITALS: BMI 23.7
[2024-04-17 07:37] VITALS: BP 143/74
[2024-04-17 07:41] LABS: % Basophils 0.8 % (0-2); % Eosinophils 3.8 % (0-6); % Immature Granulocytes 0.2 % (0-0.5); % Lymphocytes 27.7 % (20.5-51.1); % Monocytes 8.6 % (1.7-9.3); % Neutrophils 58.9 % (42.2-75.2); Absolute Basophils 0.1 10^3/uL (0-0.2); Absolute Eosinophils 0.2 10^3/uL (0-0.7); Absolute Lymphocytes 1.7 10^3/uL (1.2-3.4); Absolute Monocytes 0.5 10^3/uL (0.1-0.6); Absolute Neutrophils 3.6 10^3/uL (1.4-6.5); Hematocrit 47.3 % (37.0-47.0); Hemoglobin 15.9 g/dL (12.0-16.0); Mean Corp Hgb Conc. 33.6 g/dL (33.0-37.0); Mean Corpuscular Volume 86.3 fL (81.0-99.0); Mean Platelet Volume 10.4 fL (7.4-10.4); Nucleated Red Blood Cells % 0 %; Platelet Count 225 10^3/uL (130-400); Red Blood Cell Count 5.48 10^6/uL (4.20-5.40); Red Cell Dist. Width 13.2 % (11.5-14.5)
[2024-04-17] MEDS: LIPITOR 20 MG PO (07:48)
[2024-04-17] MEDS: NORVASC 5 MG PO (07:48)
[2024-04-17] MEDS: Hygroton 25 MG PO (07:48)
[2024-04-17] MEDS: COREG 12.5 MG PO (07:49)
[2024-04-17] MEDS: COZAAR 100 MG PO (07:50)
[2024-04-17 08:07] LABS: ALT (SGPT) < 10 U/L (0-35); AST (SGOT) 25 U/L (14-36); Albumin 4.2 g/dl (3.5-5.0); Alkaline Phosphatase 59 U/L (38-126); Blood Urea Nitrogen 15 mg/dl (7-17); Calcium 10.1 mg/dl (8.4-10.2); Carbon Dioxide 25 mmol/L (22-30); Chloride 104 mmol/L (98-107); Estimated Creatinine Clearance 37 ml/min; Glucose 115 mg/dl (70-99); Potassium 4.4 mmol/L (3.5-5.1); Sodium 138 mmol/L (135-145); Total Bilirubin 1.2 mg/dl (0.2-1.3); Total Protein 7.3 g/dl (6.3-8.2); eGFR 49.55
--- NOTE | 2024-04-17 08:36 | W.PN.CD ---
Addendum entered and electronically signed by Meliton Mar MD 04/17/24 10:57:
I saw and examined the patient.
The CLIENT SERVICE ADMINISTRATOR's note was reviewed and I agree with the note.
Comment: Lungs clear. BP improved. OK for home on current regimen. F/u arranged. Pt will check BP (average of 3-4 readings) daily for now and chronically AM/PM first and third week of each month.
Original Note:
Today's Communication / Plan
-
-continue current antihypertensive regimen as detailed below, and monitor
-await secondary work-up labs and upper extremity u/s results
Impression / Plan
-
83-year-old female with recent diagnosis of hypertension and dyslipidemia after no medical care for 3-4years. She was sent to the ED for severe HTN while in the echo lab. She has no symptoms.
Hypertensive urgency:
-improved. Amlodipine added yesterday. She did require a single dose of hydralazine yesterday when BP's became quite elevated.
-Echocardiogram this admit with stage II DD, mild cLVH
-Home losartan continued. Metoprolol transitioned to Coreg- no more HR room for increase. Chlorthalidone and amlodipine initiated. Continue these medicines.
-secondary work-up initiated and labs pending, renal artery u/s: no sonographic evidence of significant renal arterial stenosis on either side.
-Yesterday we established that there is a 20 mmHg difference in arm BP. right greater than left. Use right arm BP's. Upper extremity u/s done and read pending.
Dyslipidemia
-Lipid panel 11/30/2023: TC 154, HDL 61, LDL 72, TG 108
-continue statin
Subjective:
Patient continues to feel well and have no symptoms
Physical Exam
Vital Signs/Labs
Vital Signs
Temp Pulse Resp BP Pulse Ox
97.9 F 71 20 143/74 97
04/17/24 07:37 04/17/24 07:37 04/17/24 07:37 04/17/24 07:37 04/17/24 07:37
04/16/24 04/17/24 04/18/24
06:59 06:59 06:59
Actual Weight 68.719 kg 68.606 kg
04/17/24 07:16
04/17/24 07:16
Triglycerides 152 mg/dl (10-149) H 04/16/24 06:57
LDL Cholesterol, Calc 67 mg/dl 04/16/24 06:57
VLDL Cholesterol, Calc 30 mg/dl (0-30) 04/16/24 06:57
HDL Cholesterol 57 mg/dl 04/16/24 06:57
Physical Exam
Constitutional: No acute distress
EENT: Anicteric
Cardiovascular: Rhythm & rate is regular
Respiratory: Respiratory effort normal and Lungs clear to auscul.
Neuro/Psych: AO x 3
Data Reviewed
-
Date of Service: April 17, 2024
EKG: Other (SB/SR)
Labs: Labs Reviewed by me
--- NOTE | 2024-04-17 08:48 | W.PN.HOSP.TC ---
Today's Communication/Plan
-
Continue current antihypertensive. Workup in progress for secondary causes.
Assessment / Plan
Assessment / Plan
Physical exam:
General: Well Developed, Well Nourished and No Apparent Distress
HEENT: Normocephalic, Atraumatic and Moist Mucous Membranes
Respiratory: Clear to Auscultation; Negative Wheezes, Rales or Rhonchi
Cardiac: Regular Rhythm and S1/S2
GI: Soft, Non tender and Nondistended
Musculoskeletal: No Clubbing, No Cyanosis and No Edema
Neuro: Awake, Alert and Oriented
Psych: Calm
A/P:
#Hypertensive Urgency
Patient briefly on Cardene drip 04/15 but discontinued.
Currently on carvedilol 12.5 mg twice a day, losartan 100 mg daily, chlorthalidone 25 mg daily, and added amlodipine 5 mg p.o. daily.
She required dose of IV hydralazine 10 mg IV x 1 yesterday.
Renal artery ultrasound no significant stenosis
Renin aldosterone pending
Arterial ultrasound pending
Echocardiogram no significant abnormalities but diastolic dysfunction and left ventricular hypertrophy
Appreciated cardiology consult and follow-up further recommendations today
Discussed with family at bedside on 04/17
#HLD
Continue Pitavastatin 4 mg daily
DVT prophylaxis
Subcu Lovenox
Full code
Anticipated Discharge: 24 - 48 hours
Subjective/Interval History
-
Date of Service: April 17, 2024
Patient no chest pain shortness of breath or headache.
Objective Data
-
Labs:
Laboratory Results
04/17/24
07:16
WBC 6.0
Hgb 15.9
Hct 47.3 H
Plt Count 225 D
Sodium 138
Potassium 4.4
Chloride 104
Carbon Dioxide 25
BUN 15
Creatinine 1.1 H
Glucose 115 H
Calcium 10.1
Total Bilirubin 1.2
AST 25
ALT < 10
Alkaline Phosphatase 59
Vital Signs:
Vital Signs
Temp Pulse Resp BP Pulse Ox
97.9 F 71 20 143/74 97
04/17/24 07:37 04/17/24 07:37 04/17/24 07:37 04/17/24 07:37 04/17/24 07:37
I&O
04/16/24 04/17/24 04/18/24
06:59 06:59 06:59
Intake Total 720 / 720 1140 / 1140
Balance 720 / 720 1140 / 1140
--- NOTE | 2024-04-17 11:02 | W.DCSUMMARY ---
Discharge Summary
Discharge Data
Date of Admission: 04/15/24
Date of Discharge: 04/17/24
-
Pending Results: No
Hospital Course
Patient 83 years old female with history of hypertension hyperlipidemia presented to the hospital with elevated blood pressure. Patient came to the hospital for workup of her uncontrolled hypertension and was found to have significant hypertension.
Cardiology consulted. Patient was briefly started on Cardene drip but subsequently discontinued and placed on oral antihypertensives. She had secondary hypertension workup including echocardiogram with left ventricular hypertrophy and stage II
diastolic dysfunction but unremarkable otherwise. She also had renal artery ultrasound and no significant stenosis visualized. She also had renin aldosterone labs but are still pending and will follow-up as outpatient. She also had arterial
ultrasound of her upper extremity and no abnormalities seen. She had multiple adjustment of her medications and her blood pressure has improved. Latest BP 133/67. Cardiology cleared her for discharge today. She will be discharged in stable
condition today.
Discharge duration: 34 minutes
Discharge Plan
-
Patient Disposition: Home (Routine Discharge)
Discharge Diagnosis/Procedures: Hypertensive urgency. Hyperlipidemia.
Diet: Low Cholesterol
Activity: As tolerated
Driving Restrictions: As prior to admission
Blood Work: Please PCP to order CBC, BMP within 1 week
Referrals:
Anastasia Gregory CRNP [Specified Professional Personl] - 04/30/24 8:20 am
Rayshawn Wilson MD [Family Provider] - in less than 1 week
Prescriptions:
New
carvedilol 12.5 mg Tablet
12.5 mg PO BID 30 Days Qty: 60 0RF
chlorthalidone 25 mg Tablet
25 mg PO DAILY 30 Days Qty: 30 0RF
amlodipine 5 mg Tablet
5 mg PO DAILY 30 Days Qty: 30 0RF
Continued
losartan 100 mg tablet
100 mg PO DAILY
pitavastatin calcium 4 mg tablet
4 mg PO DAILY
Discontinued
metoprolol succinate 50 mg tablet extended release 24 hr
100 mg PO DAILY
Discharge Orders:
Discharge Patient (As Directed); Ordered 04/17/24
Ordered By: Mc Joya
Discharge Date and Time
Discharge Date/Time: 04/17/24 14:13
Print Language: YEMENI
--- NOTE | 2024-04-17 11:06 | CM ---
Patient seen bedside with spouse, patient reports she is being discharged today. Patient declines any needs upon discharge. IMM reviewed, signed, placed in chart. CM will continue to follow for all discharge planning needs.
Plan; home no needs.
[2024-04-17 11:26] VITALS: BP 133/67
[2024-04-18 14:36] LABS: Aldosterone, Serum 4.8 ng/dL; Renin Activity Results <0.1 ng/mL/hr
== END 2024-04-17 14:13 | disposition home or self-care (01) | DRG 305 ==
LOC: 4 EAST ACU 14:41
PROVIDERS: Clinical Nurse Specialist Family Health; Physician Assistant; ADMITTING PHYSICIAN Hospitalist; CONSULT PHYSICIAN Internal Medicine Cardiovascular Disease; EMERGENCY PHYSICIAN Emergency Medicine; FAMILY PHYSICIAN Internal Medicine
DX: I16.1 Hypertensive emergency (principal); I11.9 Hypertensive heart disease without heart failure; E78.00 Pure hypercholesterolemia, unspecified; Z79.899 Other long term (current) drug therapy; Z63.4 Disappearance and death of family member
CPT/HCPCS: 76770; 80053; 80061; 82088; 84244; 85025; 93005; 93306; 93923; 93930; 93975; 97161; 97165; 99285

== ENCOUNTER → 2024-04-24 09:35 | Outpatient (REF) | payer OTHER, SELFPAY ==
[2024-04-24 13:51] LABS: % Basophils 1.1 % (0-2); % Eosinophils 5.5 % (0-6); % Lymphocytes 33.8 % (20.5-51.1); % Monocytes 10.9 % (1.7-9.3); % Neutrophils 48.7 % (42.2-75.2); Absolute Basophils 0.1 10^3/uL (0-0.2); Absolute Eosinophils 0.3 10^3/uL (0-0.7); Absolute Lymphocytes 1.6 10^3/uL (1.2-3.4); Absolute Monocytes 0.5 10^3/uL (0.1-0.6); Absolute Neutrophils 2.2 10^3/uL (1.4-6.5); Hematocrit 49.1 % (37.0-47.0); Hemoglobin 15.7 g/dL (12.0-16.0); Mean Corpuscular Hgb 28.9 pg (27.0-31.0); Mean Corpuscular Volume 90.3 fL (81.0-99.0); Mean Platelet Volume 11.1 fL (7.4-10.4); Nucleated Red Blood Cells % 0 %; Platelet Count 217 10^3/uL (130-400); Red Blood Cell Count 5.44 10^6/uL (4.20-5.40); Red Cell Dist. Width 13.1 % (11.5-14.5); White Blood Cell Count 4.6 10^3/uL (4.8-10.8)
[2024-04-24 13:59] LABS: Blood Urea Nitrogen 19 mg/dl (7-17); Calcium 10.2 mg/dl (8.4-10.2); Carbon Dioxide 25 mmol/L (22-30); Chloride 103 mmol/L (98-107); Glucose 113 mg/dl (70-99); Potassium 4.3 mmol/L (3.5-5.1); Sodium 137 mmol/L (135-145); eGFR 55.55
== END ==
LOC: CLAB 09:35
PROVIDERS: ATTENDING PHYSICIAN Physician Assistant
DX: I10 Essential (primary) hypertension (principal)
CPT/HCPCS: 36415; 80048; 85025

== ENCOUNTER 2024-04-30 10:46 | Emergency (ER) | payer OTHER, SELFPAY ==
[2024-04-30 10:53] VITALS: BP 171/89
[2024-04-30 11:00] VITALS: BP 169/104
[2024-04-30 11:08] VITALS: BMI 24.5
[2024-04-30 11:19] LABS: % Basophils 0.8 % (0-2); % Eosinophils 3.1 % (0-6); % Immature Granulocytes 0.3 % (0-0.5); % Lymphocytes 21.2 % (20.5-51.1); % Monocytes 9.2 % (1.7-9.3); % Neutrophils 65.4 % (42.2-75.2); Absolute Basophils 0.1 10^3/uL (0-0.2); Absolute Eosinophils 0.2 10^3/uL (0-0.7); Absolute Lymphocytes 1.4 10^3/uL (1.2-3.4); Absolute Monocytes 0.6 10^3/uL (0.1-0.6); Absolute Neutrophils 4.2 10^3/uL (1.4-6.5); Hematocrit 45.5 % (37.0-47.0); Hemoglobin 14.8 g/dL (12.0-16.0); Mean Corp Hgb Conc. 32.5 g/dL (33.0-37.0); Mean Corpuscular Hgb 28.8 pg (27.0-31.0); Mean Corpuscular Volume 88.5 fL (81.0-99.0); Mean Platelet Volume 10.4 fL (7.4-10.4); Nucleated Red Blood Cells % 0 %; Platelet Count 207 10^3/uL (130-400); Red Blood Cell Count 5.14 10^6/uL (4.20-5.40); Red Cell Dist. Width 12.6 % (11.5-14.5); White Blood Cell Count 6.4 10^3/uL (4.8-10.8)
[2024-04-30 11:26] LABS: ALT (SGPT) < 10 U/L (0-35); AST (SGOT) 27 U/L (14-36); Albumin 4.2 g/dl (3.5-5.0); Alkaline Phosphatase 70 U/L (38-126); Blood Urea Nitrogen 18 mg/dl (7-17); Calcium 9.9 mg/dl (8.4-10.2); Carbon Dioxide 29 mmol/L (22-30); Chloride 99 mmol/L (98-107); Estimated Creatinine Clearance 31 ml/min; Glucose 142 mg/dl (70-99); Potassium 4.3 mmol/L (3.5-5.1); Sodium 135 mmol/L (135-145); Total Bilirubin 0.9 mg/dl (0.2-1.3); eGFR 40.55
[2024-04-30 12:00] VITALS: BP 162/73
--- NOTE | 2024-04-30 12:10 | ED.GENMED ---
History of Present Illness
General
Chief Complaint: Fainting/Passed Out
Source: patient
Exam Limitations: none
Time Seen by Provider: 04/30/24 11:52
History of Present Illness
History of Present Illness:
83-year-old female presents via EMS from a restaurant after a syncopal episode. She was sitting waiting for food and felt tired and became sweaty. Her states she was unresponsive. He was able to tell that she was breathing and had a
pulse. Patient remembers the getting in the ambulance. She denies any preceding chest pain. She was admitted 2 weeks ago for hypertensive urgency. Blood pressure medications were adjusted. She states she took her blood pressure medication on
empty stomach and the tablet happened dissolve in her mouth. She states she feels back to baseline other than the fact of being hungry. No other complaints at this time
Phy Exam
Physical Exam
Physical Exam:
General: Well-appearing female no acute respiratory distress
HEENT: Normocephalic atraumatic
: Regular rate and rhythm no murmurs
Lungs: Clear no wheeze or rales
Abdomen: Soft nontender nondistended
Extremities: No cyanosis
Skin: Warm, no rashes
Course
Orders/Labs/Results
Orders:
Orders
04/30/24 10:49
EKG [Electrocardiogram (*1)] Urgent
Reason for Study: Fatigue / Weakness
04/30/24 10:50
EKG- Treatment ONCE
04/30/24 11:05
CBC/With Diff [Complete Blood Count/With Diff] Urgent
CMP [Comprehensive Metabolic Panel] Urgent
Abnormal Lab Results
04/30/24
11:05
MCHC 32.5 L g/dL
(33.0-37.0)
BUN 18 H mg/dl
(7-17)
Creatinine 1.3 H mg/dL
(0.6-1.0)
Glucose 142 H mg/dl
(70-99)
04/30/24 11:05
04/30/24 11:05
Vital Signs
Initial and Last Documented VS:
Initial Vital Signs
Temp Pulse Resp BP
97.8 F 62 13 171/89
04/30/24 10:53 04/30/24 10:53 04/30/24 10:53 04/30/24 10:53
Last Documented Vital Signs
Temp Pulse Resp BP Pulse Ox
97.8 F 68 22 162/73 95
04/30/24 10:53 04/30/24 12:45 04/30/24 12:45 04/30/24 12:00 04/30/24 12:30
MDM/Problems Addressed
Differential Diagnosis Includes:
Unresponsive episode. Question vasovagal syncope. Does not sound like a seizure. Will check for arrhythmia and electrolyte abnormality versus anemia. Patient feels back to baseline with stable vital signs.
EKG
*Critical Care Note
Total Time (30-74mins, 75-104mins- exclusive of procedures): Not Applicable
Update Note
Update Note:
Patient reexamined still with stable vital signs. Nontoxic has no complaints has had something to eat and walked around the room and no further sensation of lightheadedness. I suspect a vagal episode this morning. Stable for discharge with
follow-up
ED Attending Note
-
Portions of this chart may have been created with voice recognition software.� Occasional wrong word or��sound alike� substitutions may have occurred due to the inherent limitations of voice recognition software.
Discharge Plan
Departure
Patient Disposition: Home (Routine Discharge)
Date of Disposition: 04/30/24
Time of Disposition: 14:02
Patient with high blood pressure during this ER visit?: No
Discharge Problem:
Syncope
Instructions: Syncope (Fainting) (DC)
Prescriptions:
No Action
losartan 100 mg tablet
100 mg PO DAILY
pitavastatin calcium 4 mg tablet
4 mg PO DAILY
carvedilol 12.5 mg Tablet
12.5 mg PO BID 30 Days Qty: 60 0RF
chlorthalidone 25 mg Tablet
25 mg PO DAILY 30 Days Qty: 30 0RF
amlodipine 5 mg Tablet
5 mg PO DAILY 30 Days Qty: 30 0RF
Referrals:
Rayshawn Wilson MD [Family Provider] -
Activity Restrictions/Additional Instructions:
Continue current medication. Stay hydrated. Return if worse otherwise follow-up with your glass cutting machine operator
Interventions
Interventions:
*Risk Screen - Suicide Last Done: 04/30/24 10:51
*General Assessment Last Done: 04/30/24 10:51
*Neglect/Abuse Screening Last Done: 04/30/24 10:51
ED- Fall Risk Assessment Last Done: 04/30/24 11:09
ED- Cardiac Assessment Last Done: 04/30/24 11:09
ED- Neurological Assessment Last Done: 04/30/24 11:09
Discharge Date and Time
Print Language: BAHAMIAN
[2024-04-30 13:11] VITALS: BP 189/83
== END 2024-04-30 14:20 | disposition home or self-care (01) ==
LOC: EMR 10:46
PROVIDERS: EMERGENCY PHYSICIAN Emergency Medicine; FAMILY PHYSICIAN Internal Medicine
DX: R55 Syncope and collapse (principal)
CPT/HCPCS: 99283; 80053; 85025; 93005